=== PATIENT | female | born 1960 | race Two or more races ===

== ENCOUNTER 2021-04-27 11:57 | Inpatient (IN) | payer SELFPAY ==
[2021-04-27] VITALS (10 sets, daily range): BP systolic 108–174; BP diastolic 59–72
[~2021-04-27] VITALS: Ht 170.2 cm; Wt 113.0 kg
[2021-04-27] MEDS ORDERED: fentaNYL PF VIAL 100 MCG/2 ML VIAL IVP ONE ×2 (12:30→13:00)
[2021-04-27] MEDS ORDERED: ONDANSETRON PF 4 MG/2 ML VIAL. ONE ×3 (12:52→15:11)
[2021-04-27] MEDS ORDERED: DIPH,PERTUSS(ACELL),TET VAC/PF 0.5 ML SYRINGE. VAX IM ONE ×2 (12:52→13:00)
[2021-04-27] MEDS ORDERED: IV NORMAL SALINE 1000ML BAG 1,000 ML IV ONE (13:00)
[2021-04-27] MEDS ORDERED: ONDANSETRON PF 4 MG/2 ML VIAL. IVP ONE (13:00)
--- NOTE | 2021-04-27 13:34 | RAD ---
XR LT WRIST 2 VIEWS dated 04/27/2021 12:27 PM. History: Reason: wrist injury / Spl. Instructions: / History: Comparison: None. Findings: There are fractures of the distal radius and ulna. The ulnar fracture shows minimal displacement. The re is probably dislocation at the distal radial ulnar joint with the distal ulna is displaced dorsall y. The radiocarpal articulation is grossly aligned, but there is a comminuted fracture of the distal radius involving the joint with displacement of a large fragment of the radius laterally. There is al so a questionable nondisplaced fracture through the mid scaphoid. In addition, bone fragments project anterior to the elbow and may be from the coronoid process of the ulna. Impression: 1. Displaced distal radius fracture with dorsal alignment of the distal ulna in relation to the radi al carpal region. Possible nondisplaced scaphoid fracture. Possible fracture of coronoid process at the elbow. Electronically signed by: Heber Hill Jr., MD (04/27/2021 1:31 PM) [id number]
--- NOTE | 2021-04-27 13:59 | PHYS DOC ---
Past Medical History Past Surgical History: Cholecystectomy, Other Additional Past Surgical Histo: ovarian cyst removal Smoking Status: Never Smoker Alcohol Use: None General Adult EDM: Chief Complaint: UPPER EXTREMITY INJURY HPI: HPI: Patient is a 61 year old female presents after tripping on her steps at home. Patient has open laceration on the ulnar side of left hand. Patient denies dizziness before the fall. Patient states that she simply tripped on the step. Sensation intact. Radial pulses intact. unknown last tetanus. Review of Systems: Review of Systems: ROS At least 10 ROS systems have been reviewed and are negative except as documented in the HPI. General: Negative except as outlined in HPI above. Skin: Negative except as outlined in HPI above. HEENT: Negative except as outlined in HPI above. Neck: Negative except as outlined in HPI above. Respiratory: Negative except as outlined in HPI above.. Cardiovascular: Negative except as outlined in HPI above. Abdomen: Negative except as outlined in HPI above. : Negative except as outlined in HPI above. Back/MSK: Negative except as outlined in HPI above. Neuro: Negative except as outlined in HPI above. Psych: Negative except as outlined in HPI above. Heart Score: C/O Chest Pain: No Risk Factors: Risk Factors: DM, Current or recent (<one month) smoker, HTN, HLP, family history of CAD, obesity. Risk Scores: Score 0 - 3: 2.5% MACE over next 6 weeks - Discharge Home Score 4 - 6: 20.3% MACE over next 6 weeks - Admit for Clinical Observation Score 7 - 10: 72.7% MACE over next 6 weeks - Early Invasive Strategies Current Medications: Current Medications Medications (Trade) Dose Ordered Sig/Seven Start Time Stop Time Status Last Admin Dose Admin Cefazolin Sodium/ Dextrose 50 ml @ 100 mls/hr 1X ONCE 04/27/21 12:30 04/27/21 12:59 DC 04/27/21 13:18 100 MLS/HR Diphtheria/ Tetanus/Acell Pertussis (ADACEL TDap SYRINGE) 0.5 ml STK-MED ONCE 04/27/21 12:52 04/27/21 12:53 DC Fentanyl Citrate (Fentanyl 2ml Vial) 100 mcg 1X ONCE 04/27/21 13:00 04/27/21 13:01 DC 04/27/21 12:45 100 MCG Ondansetron HCl (Zofran) 4 mg STK-MED ONCE 04/27/21 12:52 04/27/21 12:52 DC Sodium Chloride 1,000 ml @ 0 mls/hr 1X ONCE 04/27/21 13:00 04/27/21 13:01 DC 04/27/21 13:25 10 MLS/HR Allergies: Allergies: Allergies Coded Allergies Type Severity Reaction Last Updated Verified No Known Drug Allergies 04/27/21 No Physical Exam: PE: Constitutional: Well developed, well nourished, no acute distress, non-toxic appearance. [] HENT: Normocephalic, atraumatic, bilateral external ears normal, oropharynx moist, no oral exudates, nose normal. [] Eyes: PERRLA, EOMI, conjunctiva normal, no discharge. [] Neck: Normal range of motion, no tenderness, supple, no stridor. [] Cardiovascular:Heart rate regular rhythm, no murmur [] Lungs & Thorax: Bilateral breath sounds clear to auscultation [] Abdomen: Bowel sounds normal, soft, no tenderness, no masses, no pulsatile masses. [] Skin: Puncture laceration to ulnar side of the left wrist Back: No tenderness, no CVA tenderness. [] Extremities: Left wrist tenderness, ROM intact, swelling, sensation intact, radial pulses and Neurologic: Alert and oriented X 3, normal motor function, normal sensory function, no focal deficits noted. [] Psychologic: Affect normal, judgement normal, mood normal. [] Current Patient Data: Vital Signs: Vital Signs Date Time Temp Pulse Resp B/P (MAP) Pulse Ox O2 Delivery O2 Flow Rate FiO2 04/27/21 12:45 20 97 Room Air 04/27/21 12:35 97.8 51 118/56 (76) 97.8 EKG: EKG: [] Radiology/Procedures: Radiology/Procedures: []XR LT WRIST 2 VIEWS dated 04/27/2021 12:27 PM. History: Reason: wrist injury / Spl. Instructions: / History: Comparison: None. Findings: There are fractures of the distal radius and ulna. The ulnar fracture shows minimal displacement. There is probably dislocation at the distal radial ulnar joint with the distal ulna is displaced dorsally. The radiocarpal articulation is grossly aligned, but there is a comminuted fracture of the distal radius involving the joint with displacement of a large fragment of the radius laterally. There is also a questionable nondisplaced fracture through the mid scaphoid. In addition, bone fragments project anterior to the elbow and may be from the coronoid process of the ulna. Impression: 1. Displaced distal radius fracture with dorsal alignment of the distal ulna in relation to the radial carpal region. Possible nondisplaced scaphoid fracture. Possible fracture of coronoid process at the elbow. Electronically signed by: Heber Hill Jr., MD (04/27/2021 1:31 PM) [id number] Course & Med Decision Making: Course & Med Decision Making Pertinent Labs and Imaging studies reviewed. (See chart for details) [] 61-year-old female presents after a fall. Patient has open fracture to lumbar side of left wrist pain. X-ray shows displaced distal radius fracture with dorsal alignment of the distal ulna in relation to the radial carpal region.Possible nondisplaced scaphoid fracture.Possible fracture of coronoid process at the elbow. Pain treated in the emergency room. Tetanus updated. 2 g Ancef was given. Last intake was at 1030am Called Ortho and spoke with who is going to see patient for futher evaluation. who will be taking patient to surgery. Spoke with Dr. Fontaine who will admit patient for displaced distal radius fracture. Patient and family agree with admission plan. Patient is hemodynamically stable upon disposition. Rony Disclaimer: Rony Disclaimer: This electronic medical record was generated, in whole or in part, using a voice recognition dictation system. Departure Departure Impression: Primary Impression: Distal radius fracture, left Qualified Codes: S52.502B - Unspecified fracture of the lower end of left radius, initial encounter for open fracture type I or II Disposition: ADMITTED INPATIENT Admitting Physician: KENYETTA Condition: STABLE Referrals: NO PCP (PCP) MENDOZA MCQUEEN APRN Apr 27, 2021 13:59
[2021-04-27] MEDS ORDERED: HYDROmorphone 2 MG/ML VIAL IVP PRN ×2 (14:45)
[2021-04-27] MEDS ORDERED: MORPHINE SULFATE 2 MG/ML INJ. IVP PRN ×2 (14:45→17:45)
[2021-04-27] MEDS ORDERED: IV RINGERS,LACTATED 1000ML 1,000 ML IV SCH ×3 (14:45→15:45)
[2021-04-27] MEDS ORDERED: PROCHLORPERAZINE 10 MG/2 ML VIAL. IVP PRN ×2 (14:45)
[2021-04-27] MEDS ORDERED: fentaNYL PF VIAL 100 MCG/2 ML VIAL IVP PRN ×5 (14:45→17:45)
[2021-04-27] MEDS ORDERED: DEXAMETHASONE SOD PHOS 4 MG/ML VIAL ONE (15:11)
[2021-04-27] MEDS ORDERED: LIDOCAINE 2% PF 5 ML VIAL. ONE (15:11)
[2021-04-27] MEDS ORDERED: PROPOFOL 10 MG/ML (20ML) VIAL. IV ONE ×2 (15:11→16:47)
[2021-04-27] MEDS ORDERED: fentaNYL PF VIAL 100 MCG/2 ML VIAL ONE ×2 (15:15→17:18)
[2021-04-27] MEDS ORDERED: SUCCINYLCHOLINE 200 MG/10 ML VIAL. ONE (15:15)
--- NOTE | 2021-04-27 15:22 | PDOC2 ---
CONSULT Date of Consult Date of Consult DATE: 04/27/21 TIME: 15:19 Reason for Consult Reason for Consult: Open left distal radius and ulna fracture. Identification/Chief Complaint Chief Complaint Open left distal radius and ulnar fractures. Source Source: Patient History of Present Illness Reason for Visit: 61-year-old female status post ground-level fall at home. Presented to the ED with significant displacement and wound on the ulnar side of the left wrist. She is right-hand dominant. Her pain is controlled in the ER. There is a 1 cm laceration over the distal ulna suggestive of open fracture. Denies any numbness or tingling. She is here today with her daughter. Current Problem List Problem List Problems Medical Problems: (1) Distal radius fracture, left Status: Acute Current Medications Current Medications Current Medications Fentanyl Citrate (Fentanyl 2ml Vial) 50 mcg 1X ONCE IVP ; Start 04/27/21 at 12:30; Stop 04/27/21 at 12:31; Status DC Cefazolin Sodium/ Dextrose 50 ml @ 100 mls/hr 1X ONCE IV Last administered on 04/27/21at 13:18; Start 04/27/21 at 12:30; Stop 04/27/21 at 12:59; Status DC Fentanyl Citrate (Fentanyl 2ml Vial) 100 mcg 1X ONCE IVP Last administered on 04/27/21at 12:45; Start 04/27/21 at 13:00; Stop 04/27/21 at 13:01; Status DC Ondansetron HCl (Zofran) 4 mg 1X ONCE IVP Last administered on 04/27/21at 13:02; Start 04/27/21 at 13:00; Stop 04/27/21 at 13:01; Status DC Diphtheria/ Tetanus/Acell Pertussis (ADACEL TDap SYRINGE) 0.5 ml ONCE ONCE VAX IM Last administered on 04/27/21at 13:05; Start 04/27/21 at 13:00; Stop 04/27/21 at 13:01; Status DC Ondansetron HCl (Zofran) 4 mg STK-MED ONCE .ROUTE ; Start 04/27/21 at 12:52; Stop 04/27/21 at 12:52; Status DC Sodium Chloride 1,000 ml @ 0 mls/hr 1X ONCE IV Last administered on 04/27/21at 13:25; Start 04/27/21 at 13:00; Stop 04/27/21 at 13:01; Status DC Diphtheria/ Tetanus/Acell Pertussis (ADACEL TDap SYRINGE) 0.5 ml STK-MED ONCE VAX IM ; Start 04/27/21 at 12:52; Stop 04/27/21 at 12:53; Status DC Fentanyl Citrate (Fentanyl 2ml Vial) 25 mcg PRN Q5MIN PRN IVP MILD PAIN 1-3; Start 04/27/21 at 14:45; Stop 04/28/21 at 14:44 Fentanyl Citrate (Fentanyl 2ml Vial) 50 mcg PRN Q5MIN PRN IVP MODERATE PAIN 4- 6; Start 04/27/21 at 14:45; Stop 04/28/21 at 14:44 Morphine Sulfate (Morphine Sulfate) 1 mg PRN Q10MIN PRN IVP SEVERE PAIN 7-10; Start 04/27/21 at 14:45; Stop 04/28/21 at 14:44 Ringer's Solution 1,000 ml @ 30 mls/hr Q24H IV ; Start 04/27/21 at 14:45; Stop 04/28/21 at 02:44 Hydromorphone HCl (Dilaudid) 0.5 mg PRN Q10MIN PRN IVP SEVERE PAIN 7-10, 2nd CHOICE; Start 04/27/21 at 14:45; Stop 04/28/21 at 14:44 Prochlorperazine Edisylate (Compazine) 5 mg PACU PRN PRN IVP NAUSEA, MRX1; S tart 04/27/21 at 14:45; Stop 04/28/21 at 14:44 Fentanyl Citrate (Fentanyl 2ml Vial) 25 mcg PRN Q5MIN PRN IVP MILD PAIN 1-3; S tart 04/27/21 at 14:45; Stop 04/28/21 at 14:44 Fentanyl Citrate (Fentanyl 2ml Vial) 50 mcg PRN Q5MIN PRN IVP MODERATE PAIN 4-6 ; Start 04/27/21 at 14:45; Stop 04/28/21 at 14:44 Morphine Sulfate (Morphine Sulfate) 1 mg PRN Q10MIN PRN IVP SEVERE PAIN 7-10; Start 04/27/21 at 14:45; Stop 04/28/21 at 14:44 Ringer's Solution 1,000 ml @ 30 mls/hr Q24H IV ; Start 04/27/21 at 14:45; Stop 04/28/21 at 02:44 Hydromorphone HCl (Dilaudid) 0.5 mg PRN Q10MIN PRN IVP SEVERE PAIN 7-10, 2nd CHOICE; Start 04/27/21 at 14:45; Stop 04/28/21 at 14:44 Prochlorperazine Edisylate (Compazine) 5 mg PACU PRN PRN IVP NAUSEA, MRX1; Start 04/27/21 at 14:45; Stop 04/28/21 at 14:44 Propofol (Diprivan) 200 mg STK-MED ONCE IV ; Start 04/27/21 at 15:11; Stop 04/27/21 at 15:11; Status DC Lidocaine HCl (Lidocaine Pf 2% Vial) 5 ml STK-MED ONCE .ROUTE ; Start 04/27/21 at 15:11; Stop 04/27/21 at 15:11; Status DC Ondansetron HCl (Zofran) 4 mg STK-MED ONCE .ROUTE ; Start 04/27/21 at 15:11; Stop 04/27/21 at 15:11; Status DC Ondansetron HCl (Zofran) 4 mg STK-MED ONCE .ROUTE ; Start 04/27/21 at 15:11; Stop 04/27/21 at 15:12; Status DC Dexamethasone Sodium Phosphate (Decadron) 4 mg STK-MED ONCE .ROUTE ; Start 04/27/21 at 15:11; Stop 04/27/21 at 15:12; Status DC Succinylcholine Chloride (Anectine) 200 mg STK-MED ONCE .ROUTE ; Start 04/27/21 at 15:15; Stop 04/27/21 at 15:15; Status DC Fentanyl Citrate (Fentanyl 2ml Vial) 100 mcg STK-MED ONCE .ROUTE ; Start 04/27/21 at 15:15; Stop 04/27/21 at 15:15; Status DC Allergies Allergies: Coded Allergies: No Known Drug Allergies (Unverified , 04/27/21) ROS Musculoskeletal: Yes Joint Pain, Yes Joint Stiffness, Yes Joint Swelling, Yes Muscle Pain, Yes Muscular Weakness Physical Exam General: Alert, Cooperative MUSCULOSKELETAL: Abnormal exam of left (Significant deformity to the left wrist. There is a 1 cm and a laceration over the ulnar side of the wrist. No exposed bone. Distal neurovascular examination is intact. Range of motion limited secondary to fracture and pain.) Vitals VITALS Vital Signs Date Time Temp Pulse Resp B/P (MAP) Pulse Ox O2 Delivery O2 Flow Rate FiO2 04/27/21 15:09 97.1 54 18 97 97.1 04/27/21 14:39 144/64 (90) High Flow Nasal Cannula 2.0 Images Images Radiographs taken in the ER reveal a comminuted and severely displaced distal radius fracture. There is also fracture of the distal ulna as well. Assessment/Plan Assessment/Plan 61-year-old female status post ground-level fall with displaced open distal radius and ulna fractures. -Reviewed injury and treatment options with patient and her daughter. -Antibiotics started in the ER for open fracture protocol. -Discussed indications for left distal radius open reduction internal fixation as well as irrigation of the open fracture wound. -We reviewed the risks, benefits, and alternatives to surgery as well. They demonstrated understanding and wished to proceed with recommended surgery given the acute open nature of the injury. -N.p.o. with antibiotics on-call the OR. -We will plan for left distal radius ORIF later this afternoon. KAREN SHAH DO Apr 27, 2021 15:22
--- NOTE | 2021-04-27 15:36 | PDOC1 ---
History and Physical Date of Admission Date of Admission 04/27/2021 Identification/Chief Complaint Chief Complaint I fell Source Source: Patient History of Present Illness History of Present Illness Patient is a 61 year old female with past medical history of DM, essential Hypertension and hypothyroidism who was in her usual state of health until today when she suffered a fall from a ladder landing on her left upper extremity which unfortunately has a comminuted fracture and severely displaced distal radius fracture ulna is fracture as well. The patient at the time of my evaluation is in no apparent distress. She has found relief from intervention in the emergency department and pain management that has been instituted. Prior to the event the patient daughter who is helping with a history taking says that she has been quite dizzy over the last year and she attributes this to uncontrolled hypothyroidism. No changes have been done recently to her medications the patient denies any focal neurological deficits she denies loss of consciousness no vasovagal nor syncopal episodes no seizure-like activity has been reported either. No chest pain palpitations no history of MIs nor strokes have been reported by the patient nor her daughter. She denies abdominal pain nausea vomiting no paroxysmal nocturnal dyspnea no lower extremity edema was reported. At this time the patient will be taken to the operating room in order to address her fracture. Orthopedic [facility] consultant recommendations have been noted and greatly appreciated. She is at acceptable risk for the planned surgery, she is undergoing a moderate risk surgical procedure. All concerns were addressed to the best of my abilities. Past Medical History Cardiovascular: HTN, Hyperlipidemia Endocrine: Diabetes, Hypothyroidism Past Surgical History Past Surgical History: No pertinent history Family History Family History: No Significant Social History Smoke: No ALCOHOL: none Drugs: None Current Problem List Problem List Problems Medical Problems: (1) Distal radius fracture, left Status: Acute Current Medications Current Medications Current Medications Medications (Trade) Dose Ordered Sig/Seven Start Time Stop Time Status Last Admin Dose Admin Cefazolin Sodium/ Dextrose 50 ml @ 100 mls/hr 1X ONCE 04/27/21 12:30 04/27/21 12:59 DC 04/27/21 13:18 100 MLS/HR Dexamethasone Sodium Phosphate (Decadron) 4 mg STK-MED ONCE 04/27/21 15:11 04/27/21 15:12 DC Diphtheria/ Tetanus/Acell Pertussis (ADACEL TDap SYRINGE) 0.5 ml STK-MED ONCE 04/27/21 12:52 04/27/21 12:53 DC Fentanyl Citrate (Fentanyl 2ml Vial) 100 mcg STK-MED ONCE 04/27/21 15:15 04/27/21 15:15 DC Hydromorphone HCl (Dilaudid) 0.5 mg PRN Q10MIN PRN 04/27/21 14:45 04/28/21 14:44 Lidocaine HCl (Lidocaine Pf 2% Vial) 5 ml STK-MED ONCE 04/27/21 15:11 04/27/21 15:11 DC Morphine Sulfate (Morphine Sulfate) 1 mg PRN Q10MIN PRN 04/27/21 14:45 04/28/21 14:44 Ondansetron HCl (Zofran) 4 mg STK-MED ONCE 04/27/21 15:11 04/27/21 15:12 DC Prochlorperazine Edisylate (Compazine) 5 mg PACU PRN PRN 04/27/21 14:45 04/28/21 14:44 Propofol (Diprivan) 200 mg STK-MED ONCE 04/27/21 15:11 04/27/21 15:11 DC Ringer's Solution 1,000 ml @ 30 mls/hr Q24H 04/27/21 14:45 04/28/21 02:44 Sodium Chloride 1,000 ml @ 0 mls/hr 1X ONCE 04/27/21 13:00 04/27/21 13:01 DC 04/27/21 13:25 10 MLS/HR Succinylcholine Chloride (Anectine) 200 mg STK-MED ONCE 04/27/21 15:15 04/27/21 15:15 DC Allergies Allergies Allergies Coded Allergies Type Severity Reaction Last Updated Verified No Known Drug Allergies 04/27/21 No ROS Review of System CONSTITUTIONAL: No fever or chills EYES: No recent changes SKIN: No rash or itching CARDIOVASCULAR: No chest pain, syncope, palpitations, or edema RESPIRATORY: No SOB or cough GASTROINTESTINAL: No nausea, vomiting or abdominal pain NEUROLOGICAL: No headaches or weakness ENDOCRINE: No cold or heat intolerance GENITOURINARY: No urgency or frequency of urination MUSCULOSKELETAL: No back pain or joint pain LYMPHATICS: No enlarged lymph nodes PSYCHIATRIC: No anxiety or depression Physical Exam Physical Exam GEN.: No apparent distress. Alert and oriented. HEENT: Head is normocephalic, atraumatic NECK: Supple. LUNGS: Clear to auscultation. HEART: RRR, S1, S2 present. Peripheral pulses intact ABDOMEN: Soft, nontender. Positive bowel sounds. EXTREMITIES: Abnormal exam of left (Significant deformity to the left wrist. There is a 1 cm and a laceration over the ulnar side of the wrist. No exposed bone. Distal neurovascular examination is intact. Range of motion limited secondary to fracture and pain.) NEUROLOGIC: Normal speech, normal tone PSYCHIATRIC: Normal affect, normal mood. SKIN: No ulcerations Vitals Vitals Vital Signs Date Time Temp Pulse Resp B/P (MAP) Pulse Ox O2 Delivery O2 Flow Rate FiO2 04/27/21 15:09 97.1 54 18 97 97.1 04/27/21 14:39 144/64 (90) High Flow Nasal Cannula 2.0 Labs Labs Laboratory Tests Test 04/27/21 14:50 SARS-CoV-2 Antigen (Rapid) Negative (NEGATIVE) Laboratory Tests Test 04/27/21 14:50 SARS-CoV-2 Antigen (Rapid) Negative (NEGATIVE) VTE Prophylaxis Ordered VTE Prophylaxis Devices: No VTE Pharmacological Prophylaxi: Yes Assessment/Plan Assessment/Plan Status post mechanical fall Displaced open distal radius and ulna fracture Essential hypertension Dyslipidemia Hypothyroidism acquired Plan OR as per [facility] consultant Resume home medications Check laboratory data Pain management DVT prophylaxis with Lovenox Further recommendations based on the clinical course Justifications for Admission Other Justification ACE BOGGS MD Apr 27, 2021 15:36
[2021-04-27] MEDS ORDERED: ONDANSETRON PF 4 MG/2 ML VIAL. IVP PRN (15:45)
[2021-04-27] MEDS ORDERED: oxyCODONE IR 5 MG TABLET PO PRN (15:45)
[2021-04-27] MEDS ORDERED: BISACODYL 10 MG SUPP.RECT. PR PRN (15:45)
[2021-04-27] MEDS ORDERED: MAGNESIUM HYDROXIDE 2,400 MG/30 ML ORAL.SUSP. PO PRN (15:45)
[2021-04-27] MEDS ORDERED: MAG HYDROX/ALUMINUM HYD/SIMETH 30 ML ORAL.SUSP PO PRN (15:45)
[2021-04-27] MEDS ORDERED: ELECTROLYTE (NON-ICU) PROTOCOL. MC PRN (15:45)
[2021-04-27] MEDS ORDERED: HYDROcodone/APAP 5/325MG 1 TAB TABLET PO PRN (15:45)
[2021-04-27] MEDS ORDERED: ZOLPIDEM 5 MG TABLET. PO PRN (15:45)
[2021-04-27] MEDS ORDERED: LACTULOSE 20 GM/30 ML SOLUTION. PO PRN (15:45)
[2021-04-27] MEDS ORDERED: MORPHINE SULFATE 2 MG/ML INJ. IV PRN (15:45)
[2021-04-27] MEDS ORDERED: PHENYLEPHRINE in 0.9% NACL PF 1 MG/10 ML SYRINGE. IV ONE (16:02)
[2021-04-27] MEDS ORDERED: BUPIVACAINE-EPI 0.25% 30 ML VIAL KIT. ONE (16:07)
[2021-04-27 16:13] LABS: FREE T4 1.14 ng/dL (0.76-1.46); THYROID STIM HORMONE (TSH) 1.309 uIU/mL (0.358-3.74)
[2021-04-27 16:14] LABS: BASO # 0.1 x10^3/uL (0.0-0.2); BASO % 1 % (0-3); EOS # 0.1 x10^3/uL (0.0-0.7); EOS % 2 % (0-3); HEMATOCRIT 42.4 % (36.0-47.0); LYMPH # 2.9 x10^3/uL (1.0-4.8); LYMPH % 35 % (24-48); MEAN CORPUSCULAR HEMOGLOBIN 29 pg (25-35); MEAN CORPUSCULAR HGB CONC 33 g/dL (31-37); MEAN CORPUSCULAR VOLUME 89 fL (79-100); MONO # 0.4 x10^3/uL (0.0-1.1); MONO % 5 % (0-9); NEUT # 4.8 x10^3/uL (1.8-7.7); NEUT % 58 % (31-73); PLATELET COUNT 335 x10^3/uL (140-400); RED BLOOD COUNT 4.77 x10^6/uL (3.50-5.40); WHITE BLOOD COUNT 8.3 x10^3/uL (4.0-11.0)
[2021-04-27 16:36] LABS: ALBUMIN 3.7 g/dL (3.4-5.0); CALCIUM 8.9 mg/dL (8.5-10.1); CREATININE 1.1 mg/dL (0.6-1.0); DIRECT BILIRUBIN 0.1 mg/dL (0.0-0.2); GFR 50.3; POTASSIUM 4.3 mmol/L (3.5-5.1); TOTAL BILIRUBIN 0.4 mg/dL (0.2-1.0); TOTAL PROTEIN 7.9 g/dL (6.4-8.2)
[2021-04-27] MEDS ORDERED: INSULIN LISPRO 100 UNIT/ML 3ML VIAL for OP,RR ONLY. SQ PRN (17:15)
[2021-04-27] MEDS ORDERED: SEVOFLURANE > 120 MINUTES. IH ONE (17:29)
--- NOTE | 2021-04-27 17:31 | PDOC4 ---
Operative Note Operative Note Date of surgery: 04/27/2021 Preoperative diagnosis: Comminuted open (Gr I) left distal radius and ulnar fracture. Postoperative diagnosis: Same. Operative procedure: Left distal radius and ulna fracture open reduction internal fixation, irrigation debridement open fracture site. Surgeon: Karen Shah DO/JANIE Assistants: None Anesthesia: General Antibiotics: Ancef Orthopedic implants: -Humberto locking distal radius plate Operative indications: Patient is a pleasant 61-year-old female who suffered a ground-level fall which resulted in open left distal radius and ulna fracture. Radiographs were reviewed. Discussed the indications for surgery with the patient and her daughter. Patient and family demonstrate understanding and wished to proceed with recommended surgery. Operative technique: The patient was met in the preoperative holding area and again the risk, benefits, and alternatives to surgery were reviewed with the patient. -h-e again demonstrated understanding and wished to proceed with surgery. The operative extremity was then initialed after verifying correct surgical site with patient. Patient was then taken back to the operative suite. She was administered a general anesthetic by the department of anesthesiology. She was placed on the operative table in supine position and was given 2 g of Ancef preoperatively. A timeout protocol was performed to verify correct surgical site and procedure. All teams were in agreement. The left upper extremity was then sterilely prepped and draped in the usual fashion. Surgery began by utilizing a 10 blade scalpel to make a standard volar based skin incision for volar approach to the distal radius. The FCR tendon was identified and retracted radially. Sharp dissection was carried down until the FPL muscle belly was exposed. Blunt finger dissection was used to expose the fracture site. A self-retaining retractor was then placed. Fracture was noted to be significantly comminuted with 3 or more pieces of intra-articular fragments. The fracture site was thoroughly irrigated. Provisional reduction was taint obtained and K wires were provisionally placed to hold fracture reduction. This was checked under fluoroscopic imaging. Once adequate fracture reduction was obtained, a 2 hole volar based plate was placed on the distal radius. Its position was checked utilizing fluoroscopy. The plate was then fixated distally utilizing 2.7 mm locking screws in standard fashion. The plate was then fixated to the radial shaft utilizing 2.7 mm cortical screws recreating volar inclination and radial tilt and height. The wound was thoroughly irrigated with normal saline. DBM bone putty was packed around the plate and into the fracture avoid. Subcuticular tissues were closed lysing 3-0 Vicryl and the skin was closed with a running subcuticular Prolene suture. Next, attention was then turned to irrigation of the open fracture site. There was a small 1 cm percutaneous wound noted on the ulnar aspect of the wrist. The wound was explored which did not reveal any contamination. This wound was then irrigated with 500 cc of normal saline. The wound was then closed with 3-0 Prolene and [id number] fashion. Local anesthetic was then injected into both sites. Sterile dressings were applied and the patient was then placed into a well-padded volar based wrist splint. She was then transferred to the postoperative gurney in stable condition. Estimated blood loss: 20 mL. Complications: None. Specimens sent to pathology: None. Disposition: PACU and post surgical floor. Condition: Stable. KAREN SHAH DO Apr 27, 2021 17:31
[2021-04-27] MEDS ORDERED: MORPHINE SULFATE 2 MG/ML INJ. ONE (17:38)
--- NOTE | 2021-04-27 17:38 | RAD ---
Exam: Fluoroscopic images left wrist INDICATION: Left wrist fracture TECHNIQUE: Fluoroscopic images from orthopedic procedure were submitted for interpretation Comparisons: Wrist radiographs same FINDINGS: There is improved alignment at the distal radial fracture with placement of a fixation plate with num erous fixation screws. Fluoroscopy time: 0.1 seconds IMPRESSION: Fluoroscopic images as described above. Please see procedural note for further details. Electronically signed by: Mita Luo MD (04/27/2021 5:36 PM) CH[facility]STIN
[2021-04-27] MEDS: MORPHINE SULFATE 2 MG/ML INJ. IVP PRN ×2 (17:44→17:54)
[2021-04-27] MEDS ORDERED: 0.9 % SODIUM CHLORIDE 10 ML DISP.SYRIN. IV PRN (17:45)
[2021-04-27] MEDS ORDERED: diphenhydrAMINE 50 MG/ML VIAL IVP PRN (17:45)
[2021-04-27] MEDS ORDERED: HYDR25TA PO (19:12)
[2021-04-27] MEDS ORDERED: ATOR20TA58 PO (19:12)
[2021-04-27] MEDS ORDERED: LOSA100T14 PO (19:12)
[2021-04-27] MEDS ORDERED: METO50TA6 PO (19:12)
[2021-04-27] MEDS ORDERED: METF500T16 PO (19:12)
[2021-04-27] MEDS ORDERED: LEVO88TA4 PO (19:12)
[2021-04-27] MEDS: SENNOSIDES/DOCUSATE 8.6/50MG TABLET. PO SCH (22:13)
--- NOTE | 2021-04-27 23:53 | RAD ---
Three-view left wrist HISTORY: Postop left wrist AP lateral oblique views There has been repair of a fracture of the distal radius with an anterior overlying plate and screws. There is a slightly distracted fracture of the distal ulna. IMPRESSION: Status post repair of distal radial fracture. Electronically signed by: Bernabe Rangel III, MD (04/27/2021 11:50 PM) [facility]
[2021-04-28 03:18] VITALS: BP 150/77
[2021-04-28 07:00] VITALS: BP 169/63
[2021-04-28 08:10] LABS: BASO % 0 % (0-3); EOS % 0 % (0-3); HEMATOCRIT 37.6 % (36.0-47.0); HEMOGLOBIN 12.2 g/dL (12.0-15.5); LYMPH # 1.6 x10^3/uL (1.0-4.8); LYMPH % 15 % (24-48); MEAN CORPUSCULAR HEMOGLOBIN 29 pg (25-35); MEAN CORPUSCULAR HGB CONC 33 g/dL (31-37); MEAN CORPUSCULAR VOLUME 88 fL (79-100); MONO # 0.8 x10^3/uL (0.0-1.1); MONO % 8 % (0-9); NEUT # 8.6 x10^3/uL (1.8-7.7); NEUT % 78 % (31-73); PLATELET COUNT 281 x10^3/uL (140-400); RED BLOOD COUNT 4.25 x10^6/uL (3.50-5.40); RED CELL DISTRIBUTION WIDTH 13.7 % (11.5-14.5); WHITE BLOOD COUNT 11.1 x10^3/uL (4.0-11.0)
[2021-04-28] MEDS: SENNOSIDES/DOCUSATE 8.6/50MG TABLET. PO SCH (08:16)
[2021-04-28 08:20] LABS: CALCIUM 8.5 mg/dL (8.5-10.1); CREATININE 0.5 mg/dL (0.6-1.0); POTASSIUM 3.6 mmol/L (3.5-5.1)
[2021-04-28 08:23] LABS: PROTHROMBIN TIME PATIENT 13.8 SEC (11.7-14.0)
[2021-04-28] MEDS ORDERED: SENNOSIDES/DOCUSATE 8.6/50MG TABLET. PO SCH (09:00)
[2021-04-28] MEDS ORDERED: ENOXAPARIN 40 MG/0.4 ML SYRINGE. SQ SCH (09:00)
[2021-04-28] MEDS ORDERED: MULTIVITAMIN with MINERAL TABLET. PO SCH (09:00)
[2021-04-28 11:00] VITALS: BP 145/70
[2021-04-28] MEDS ORDERED: OXYC1TAB15 PO (11:51)
[2021-04-28] MEDS ORDERED: SENN1TAB99 PO (11:51)
--- NOTE | 2021-04-28 11:53 | DISCH ---
DISCHARGE INSTRUCTIONS Condition on Discharge Condition on Discharge: Stable Activity After Discharge Activity Instructions for Disc: Activity as tolerated Lifting Instructions after Dis: No pulling or pushing Exercise Instruction after Dis: Walk 15 min, 3 x per day Driving Instructions after Dis: Do not drive today Weight Bearing Status after Di: Non weight bearing Diet after Discharge Diet after Discharge: Diabetic No Calorie Level Follow-Up Follow up with: PCP within 2 weeks of discharge Follow Up With: Orthopedic surgery within 2 weeks of discharge or as scheduled MEETA LUO MD Apr 28, 2021 11:53
--- NOTE | 2021-04-28 13:07 | PDOC ---
PROGRESS NOTES Date of Service DATE: 04/28/21 TIME: 13:06 Subjective Subjective Problems overnight: No acute issues overnight. Pain is well controlled. Patient stable and ready for discharge today. Objective Vital Signs Vital Signs Date Time Temp Pulse Resp B/P (MAP) Pulse Ox O2 Delivery O2 Flow Rate FiO2 04/28/21 11:00 98.1 81 17 145/70 (95) 96 Room Air 98.1 04/28/21 07:05 2.0 Physical Exam Minimal swelling. Range of motion is improving. Distal neurovascular examination is intact. Left upper extremity splint is clean dry and intact. Labs Laboratory Tests Test 04/27/21 12:35 04/27/21 14:50 04/27/21 17:25 04/27/21 19:57 White Blood Count 8.3 x10^3/uL (4.0-11.0) Red Blood Count 4.77 x10^6/uL (3.50-5.40) Hemoglobin 14.0 g/dL (12.0-15.5) Hematocrit 42.4 % (36.0-47.0) Mean Corpuscular Volume 89 fL (79-100) Mean Corpuscular Hemoglobin 29 pg (25-35) Mean Corpuscular Hemoglobin Concent 33 g/dL (31-37) Red Cell Distribution Width 14.0 % (11.5-14.5) Platelet Count 335 x10^3/uL (140-400) Neutrophils (%) (Auto) 58 % (31-73) Lymphocytes (%) (Auto) 35 % (24-48) Monocytes (%) (Auto) 5 % (0-9) Eosinophils (%) (Auto) 2 % (0-3) Basophils (%) (Auto) 1 % (0-3) Neutrophils # (Auto) 4.8 x10^3/uL (1.8-7.7) Lymphocytes # (Auto) 2.9 x10^3/uL (1.0-4.8) Monocytes # (Auto) 0.4 x10^3/uL (0.0-1.1) Eosinophils # (Auto) 0.1 x10^3/uL (0.0-0.7) Basophils # (Auto) 0.1 x10^3/uL (0.0-0.2) Sodium Level 140 mmol/L (136-145) Potassium Level 4.3 mmol/L (3.5-5.1) Chloride Level 102 mmol/L (98-107) Carbon Dioxide Level 26 mmol/L (21-32) Anion Gap 12 (6-14) Blood Urea Nitrogen 24 mg/dL (7-20) Creatinine 1.1 mg/dL (0.6-1.0) Estimated GFR (Cockcroft-Gault) 50.3 Glucose Level 113 mg/dL (70-99) Calcium Level 8.9 mg/dL (8.5-10.1) Total Bilirubin 0.4 mg/dL (0.2-1.0) Direct Bilirubin 0.1 mg/dL (0.0-0.2) Aspartate Amino Transf (AST/SGOT) 25 U/L (15-37) Alanine Aminotransferase (ALT/SGPT) 20 U/L (14-59) Alkaline Phosphatase 104 U/L (46-116) Total Protein 7.9 g/dL (6.4-8.2) Albumin 3.7 g/dL (3.4-5.0) Thyroid Stimulating Hormone (TSH) 1.309 uIU/mL (0.358-3.74) Free Thyroxine 1.14 ng/dL (0.76-1.46) SARS-CoV-2 RNA (OUMOU) Negative (Negative) SARS-CoV-2 Antigen (Rapid) Negative (NEGATIVE) Glucose (Fingerstick) 110 mg/dL (70-99) 149 mg/dL (70-99) Test 04/28/21 07:05 04/28/21 08:07 04/28/21 11:48 White Blood Count 11.1 x10^3/uL (4.0-11.0) Red Blood Count 4.25 x10^6/uL (3.50-5.40) Hemoglobin 12.2 g/dL (12.0-15.5) Hematocrit 37.6 % (36.0-47.0) Mean Corpuscular Volume 88 fL (79-100) Mean Corpuscular Hemoglobin 29 pg (25-35) Mean Corpuscular Hemoglobin Concent 33 g/dL (31-37) Red Cell Distribution Width 13.7 % (11.5-14.5) Platelet Count 281 x10^3/uL (140-400) Neutrophils (%) (Auto) 78 % (31-73) Lymphocytes (%) (Auto) 15 % (24-48) Monocytes (%) (Auto) 8 % (0-9) Eosinophils (%) (Auto) 0 % (0-3) Basophils (%) (Auto) 0 % (0-3) Neutrophils # (Auto) 8.6 x10^3/uL (1.8-7.7) Lymphocytes # (Auto) 1.6 x10^3/uL (1.0-4.8) Monocytes # (Auto) 0.8 x10^3/uL (0.0-1.1) Eosinophils # (Auto) 0.0 x10^3/uL (0.0-0.7) Basophils # (Auto) 0.0 x10^3/uL (0.0-0.2) Prothrombin Time 13.8 SEC (11.7-14.0) Prothromb Time International Ratio 1.1 (0.8-1.1) Sodium Level 140 mmol/L (136-145) Potassium Level 3.6 mmol/L (3.5-5.1) Chloride Level 105 mmol/L (98-107) Carbon Dioxide Level 25 mmol/L (21-32) Anion Gap 10 (6-14) Blood Urea Nitrogen 14 mg/dL (7-20) Creatinine 0.5 mg/dL (0.6-1.0) Estimated GFR (Cockcroft-Gault) 125.0 Glucose Level 97 mg/dL (70-99) Calcium Level 8.5 mg/dL (8.5-10.1) Glucose (Fingerstick) 100 mg/dL (70-99) 116 mg/dL (70-99) Laboratory Tests Test 04/27/21 14:50 04/27/21 17:25 04/27/21 19:57 04/28/21 07:05 SARS-CoV-2 RNA (OUMOU) Negative (Negative) SARS-CoV-2 Antigen (Rapid) Negative (NEGATIVE) Glucose (Fingerstick) 110 mg/dL (70-99) 149 mg/dL (70-99) White Blood Count 11.1 x10^3/uL (4.0-11.0) Red Blood Count 4.25 x10^6/uL (3.50-5.40) Hemoglobin 12.2 g/dL (12.0-15.5) Hematocrit 37.6 % (36.0-47.0) Mean Corpuscular Volume 88 fL (79-100) Mean Corpuscular Hemoglobin 29 pg (25-35) Mean Corpuscular Hemoglobin Concent 33 g/dL (31-37) Red Cell Distribution Width 13.7 % (11.5-14.5) Platelet Count 281 x10^3/uL (140-400) Neutrophils (%) (Auto) 78 % (31-73) Lymphocytes (%) (Auto) 15 % (24-48) Monocytes (%) (Auto) 8 % (0-9) Eosinophils (%) (Auto) 0 % (0-3) Basophils (%) (Auto) 0 % (0-3) Neutrophils # (Auto) 8.6 x10^3/uL (1.8-7.7) Lymphocytes # (Auto) 1.6 x10^3/uL (1.0-4.8) Monocytes # (Auto) 0.8 x10^3/uL (0.0-1.1) Eosinophils # (Auto) 0.0 x10^3/uL (0.0-0.7) Basophils # (Auto) 0.0 x10^3/uL (0.0-0.2) Prothrombin Time 13.8 SEC (11.7-14.0) Prothromb Time International Ratio 1.1 (0.8-1.1) Sodium Level 140 mmol/L (136-145) Potassium Level 3.6 mmol/L (3.5-5.1) Chloride Level 105 mmol/L (98-107) Carbon Dioxide Level 25 mmol/L (21-32) Anion Gap 10 (6-14) Blood Urea Nitrogen 14 mg/dL (7-20) Creatinine 0.5 mg/dL (0.6-1.0) Estimated GFR (Cockcroft-Gault) 125.0 Glucose Level 97 mg/dL (70-99) Calcium Level 8.5 mg/dL (8.5-10.1) Test 04/28/21 08:07 04/28/21 11:48 Glucose (Fingerstick) 100 mg/dL (70-99) 116 mg/dL (70-99) Imaging Postoperative radiographs reveal internal fixation of the comminuted distal radius fracture with acceptable alignment. Assessment Assessment POD#1 status post left distal radius ORIF with irrigation and debridement of ope n fracture site. Plan Plan of Care Patient doing well and pain is well controlled. -Orthopedically stable for discharge. -Continue pain medicine as needed. -Keep splint clean dry and intact. -Nonweightbearing left upper extremity. -Outpatient orthopedic clinic follow-up in 10 to 14 days. Justicifation of Admission Dx: Justifications for Admission: Justification of Admission Dx: Yes KAREN SHAH DO Apr 28, 2021 13:07
--- NOTE | 2021-04-28 13:50 | NUR ---
Discharge Note: NEGAR PALMER Discharge instructions and discharge home medications reviewed with Patient and family member and a copy given. All questions have been answered and understanding verbalized. The following instructions and handouts were given: information about activity, weight bearing status, follow up appointments, diet, medications. Discontinued lines and drains: IV line in right AC removed, catheter tip intact. Patient discharged to home with self care, patient ambulated to discharge vehicle.
[2021-04-29 04:07] LABS: HEMOGLOBIN A1C 5.8 % (4.8-5.6)
--- NOTE | 2021-04-30 17:51 | PDOC3 ---
[facility]-Discharge Summary Date of Admission: Date of Admission: Apr 27, 2021 Date of Discharge: Date of Discharge: Apr 28, 2021 Discharge Diagnosis: Discharge Diagnosis: Status post mechanical fall Displaced open distal radius and ulna fracture s/p ORIF Essential hypertension Dyslipidemia Hypothyroidism acquired Hospital Course: Hospital Course: 61 year old female with past medical history of DM, essential Hypertension and hypothyroidism who was in her usual state of health until today when she suffered a fall from a ladder landing on her left upper extremity which unfortunately has a comminuted fracture and severely displaced distal radius fracture ulna is fracture as well. The patient at the time of my evaluation is in no apparent distress. She has found relief from intervention in the emergency department and pain management that has been instituted. Prior to the event the patient daughter who is helping with a history taking says that she has been quite dizzy over the last year and she attributes this to uncontrolled hypothyroidism. No changes have been done recently to her medications the patient denies any focal neurological deficits she denies loss of consciousness no vasovagal nor syncopal episodes no seizure-like activity has been reported either. No chest pain palpitations no history of MIs nor strokes have been reported by the patient nor her daughter. She denies abdominal pain nausea vomiting no paroxysmal nocturnal dyspnea no lower extremity edema was reported. Pt underwent ORIF with orthopedics. Pt tolerated procedure well without any major complications. By day of discharge, pt was clinically stable and ready for discharge. Rest of hospital course was uneventful Disposition: Disposition/Orders: D/C to Home Activity: Activity: Resume previous activity Diet: Diet: Cardiac Medications: Home Meds Active Scripts Sennosides/Docusate Sodium (Senna-Docusate Sodium Tablet) 1 Each Tablet, 1 TAB PO DAILY PRN for CONSTIPATION for 20 Days, #20 TAB 0 Refills Prov:MEETA LUO MD 04/28/21 Oxycodone/Apap 5-325 (PERCOCET 5-325 MG TABLET ) 1 Each Tablet, 1 TAB PO Q6HRS PRN for PAIN MDD 2 Tablet(s) for 3 Days, #12 TAB 0 Refills Prov:MEETA LUO MD 04/28/21 Reported Medications Hydroxyzine Hcl (HYDROXYZINE HCL) 25 Mg Tablet, 1 TAB PO QID for anxiety, #30 TAB 04/27/21 Levothyroxine Sodium (LEVOTHYROXINE SODIUM) 88 Mcg Tablet, 1 TAB PO DAILY for hypothyroid, #30 TAB 5 Refills 04/27/21 Atorvastatin Calcium (ATORVASTATIN CALCIUM) 20 Mg Tablet, 20 MG PO HS for FOR CHOLESTEROL, #30 TAB 0 Refills 04/27/21 Metformin Hcl (METFORMIN HCL) 500 Mg Tablet, 500 MG PO BIDWMEALS for ANTI- DIABETIC, TAB 0 Refills 04/27/21 Metoprolol Tartrate (METOPROLOL TARTRATE) 50 Mg Tablet, 1 TAB PO BID for HTN, #60 TAB 5 Refills 04/27/21 Losartan Potassium (LOSARTAN POTASSIUM) 100 Mg Tablet, 100 MG PO DAILY for HYPERTENSION, TAB 04/27/21 Scheduled Atorvastatin Calcium (Atorvastatin Calcium), 20 MG PO HS, (Reported) Hydroxyzine Hcl (Hydroxyzine Hcl), 1 TAB PO QID, (Reported) Levothyroxine Sodium (Levothyroxine Sodium), 1 TAB PO DAILY, (Reported) Losartan Potassium (Losartan Potassium), 100 MG PO DAILY, (Reported) Metformin Hcl (Metformin Hcl), 500 MG PO BIDWMEALS, (Reported) Metoprolol Tartrate (Metoprolol Tartrate), 1 TAB PO BID, (Reported) Scheduled PRN Oxycodone/Apap 5-325 (Percocet 5-325 Mg Tablet ), 1 TAB PO Q6HRS PRN for PAIN Sennosides/Docusate Sodium (Senna-Docusate Sodium Tablet), 1 TAB PO DAILY PRN for CONSTIPATION Total Time: Total Time: Total time spent was 32 minutes in preparing scripts, discharge planning with SW and RN, and preparing this discharge summary. Justicifation of Admission Dx: Justifications for Admission: Justification of Admission Dx: Yes MEETA LUO MD Apr 30, 2021 17:51
== END 2021-04-28 13:50 | disposition home or self-care (01) | DRG 512 ==
LOC: ER 11:57 → 4 NORTH 15:04
PROVIDERS: ADMIT Internal Medicine; ATTEND Internal Medicine
PROC: 5A0935A Assistance with Respiratory Ventilation, Less than 24 Consecutive Hours, High Flow/Velocity Cannula (ICD-10-PCS; 2021-04-27)
PROC: 0PSL04Z Reposition Left Ulna with Internal Fixation Device, Open Approach (ICD-10-PCS; 2021-04-27)
PROC: 0PSJ04Z Reposition Left Radius with Internal Fixation Device, Open Approach (ICD-10-PCS; principal; 2021-04-27 15:30)
DX: S52.502B Unspecified fracture of the lower end of left radius, initial encounter for open fracture type I or II (principal); S52.602B Unspecified fracture of lower end of left ulna, initial encounter for open fracture type I or II; E03.9 Hypothyroidism, unspecified; E11.9 Type 2 diabetes mellitus without complications; E78.5 Hyperlipidemia, unspecified; I10 Essential (primary) hypertension; Y92.009 Unspecified place in unspecified non-institutional (private) residence as the place of occurrence of the external cause; W18.39XA Other fall on same level, initial encounter; Y93.89 Activity, other specified; Y99.8 Other external cause status
CPT/HCPCS: 36415; 73100; 73120; 76000; 80048; 80076; 82962; 83036; 84439; 84443; 84480; 85025; 85610; 87426; 90471; 90715; 96365; 96366; 96375; A4209; A4364; A4452; A4565; A4930; A6402; A6452; C1713; J0330; J0690; J0780; J1100; J1650; J2270; J2370; J2405; J2704; J3010; J7030; J7120; U0003; U0005; 99285-25; G0378